=== PATIENT | female | born 2000 | race Caucasian/White ===

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

== ENCOUNTER 2018-11-23 18:41 | Emergency (ER) | payer BC, MEDICAID ==
--- NOTE | 2018-11-23 19:24 | ED Physician Chart ---
ED Chief Complaint/HPI - Patient Information Date Seen:: 11/23/18 Time Seen:: 19:05 Chief Complaint:: diffuse myalgia History of Present Illness:: Patient awoke with pain right foot (dorsum fourth toe and over the base of fifth metatarsal) at [id number] this morning. She thinks she was bitten by an insect or spider. She did not see what bit or stung her. Sore throat started at 11:00. This afternoon she developed diffuse myalgia most severe in her thighs. She states she's never had myalgia this severe before. Allergies:: Allergies Allergy/AdvReac Type Severity Reaction Status Date / Time No Known Allergies Allergy Verified 11/23/18 18:49 Vitals:: Vital Signs - 8 hr 11/23/18 18:50 Temp 98.7 F HR 18 RR 18 BP 130/67 O2 Sat % 98 Historian:: Patient Review:: Nurse's Note Reviewed ED Review of Systems - Review of Systems General/Constitutional: No fever, No chills, No weight loss, No weakness, No diaphoresis, No edema, No loss of appetite Skin: No skin lesions, No rash, No bruising Head: No headache, No light-headedness Eyes: No loss of vision, No pain, No diplopia ENT: No earache, No nasal drainage, Sore throat, No tinnitus Neck: No neck pain, No swelling, No thyromegaly, No stiffness, No mass noted Cardio Vascular: No chest pain, No palpitations, No PND, No orthopnea, No edema Pulmonary: No SOB, No cough, No sputum, No wheezing GI: No nausea, No vomiting, No diarrhea, No pain, No melena, No hematochezia, No constipation, No hematemesis G/U: No dysuria, No frequency, No hematuria Musculoskeletal: No bone or joint pain, No back pain, No muscle pain Endocrine: No polyuria, No polydipsia Psychiatric: No prior psych history, No depression, No anxiety, No suicidal ideation Hematopoietic: No bruising, No lymphadenopathy Allergic/Immuno: No urticaria, No angioedema Neurological: No syncope, No focal symptoms, No weakness, No paresthesia, No headache, No seizure, No dizziness, No confusion, No vertigo ED Past Medical History - Past Medical History Past Medical History: No significant medical hx Family History: Diabetes Melitus Social History: Non Smoker, No Alcohol Surgical History: None Psychiatricy History: None Medication: None Family Medical History - Family Member Mother Ethnicity: Living Status: Still Living ED Physical Exam - Physical Examination General/Constitutional: Awake, Well-developed, well-nourished, Alert, No distress, GCS 15, Non-toxic appearing, Ambulatory Head: Atraumatic Eyes: Lids, conjuctiva normal, PERRL Other Skin comments:: 1 cm area of erythema over the base of fifth metatarsal right foot. ENMT: External ears, nose nl, TM canals nl, Nasal exam nl, Lips, teeth, gums nl , Oropharynx nl, Tonsils nl Neck: No nuchal rigidity Respiratory: Nl effort/Exclusion, Clear to Auscultation, No Wheeze/Rhonchi/Rales Cardio Vascular: RRR, No murmur, gallop, rubs, NL S1 S2 GI: No tenderness/rebounding/guarding, No organomegaly, No hernia, Normal BS's, Nondistended, No mass/bruits, No McBurney tenderness : No CVA tenderness Extremities: Normal digits & nails Neuro/Psych: No focal deficits Misc: No paraspinal tenderness ED Labs/Radiology/EKG Results - Lab Results Results: Laboratory Results Creatine Kinase 118 U/L ([id number]) 11/23/18 19:35 ED Assessment - Assessment General Assessment: Patient's myalgia could be secondary to a viral syndrome since she does have a sore throat and the throat appears normal which is common with a viral pharyngitis. It may just have been a coincidence that she developed myalgia after having been stung or bitten by an insect or spider. However the possibility of a black spider bite cannot be completely discarded although it would be unusual to have a black spider in the house. After the injection of Toradol 30 mg intramuscularly patient's myalgia subsided completely. Patient's CPK was not elevated. I encouraged patient to drink lots a half Gatorade half water and take 2 [id number] ibuprofen 3-4 times a day for the recurrence of myalgia. ED Septic Shock - . Is Septic Shock (SBP<90, OR Lactate>4 mmol\L) present?: No - <6hrs of presentation: Vital Signs: Vital Signs - 8 hr 11/23/18 18:50 Temp 98.7 F HR 18 RR 18 BP 130/67 O2 Sat % 98 ED Reassessment (Disposition) - Reassessment Reassessment Condition:: Improved - Diagnosis Diagnosis:: Acute viral syndrome; myalgia; insect or spider bite - Aftercare/Follow up Instructions Aftercare/Follow-Up Instructions:: Refer to Discharge Instructions - Patient Disposition Discharge/Transfer:: Home
== END 2018-11-23 20:41 | disposition home or self-care (01) ==
LOC: ER 18:41
DX: S90.861A Insect bite (nonvenomous), right foot, initial encounter (principal); J02.8 Acute pharyngitis due to other specified organisms; B97.89 Other viral agents as the cause of diseases classified elsewhere; M79.10 Myalgia, unspecified site; W57.XXXA Bitten or stung by nonvenomous insect and other nonvenomous arthropods, initial encounter; Y93.89 Activity, other specified; Y92.89 Other specified places as the place of occurrence of the external cause; Y99.8 Other external cause status
CPT/HCPCS: 99283; 96372; 36415; 82550; J1885; Z7502